=== PATIENT | female | born 1935 | race Two or more races ===

== ENCOUNTER 2021-03-04 05:30 | Day surgery (SDC) | payer OTHER ==
[~2021-03-04 05:30] MED LIST: ATACAND32 MG PO; BYSTOLIC10 MG PO; COMBIPATCH 0.01 EACH TD; HYDRODIURIL12.5 MG PO; LEVO-T25 MCG PO; VITAL-D RX TAB1 EACH PO
[2021-03-04] MEDS ORDERED: MACROBID 100 M100 MG PO (09:08)
[2021-03-04] MEDS ORDERED: ULTRACET PO (09:08)
== END 2021-03-04 14:35 | disposition home or self-care (01) ==
LOC: CIR.AMB 05:30
PROVIDERS: ATTEND Obstetrics & Gynecology Gynecology
DX: N81.3 Complete uterovaginal prolapse (principal); Z20.822 Contact with and (suspected) exposure to COVID-19